=== PATIENT | female | born 1975 | race Caucasian/White ===

== ENCOUNTER 2021-09-27 18:27 | Emergency (ER) | payer OTHER ==
[~2021-09-27] VITALS: Ht 157.5 cm; Wt 90.0 kg
[~2021-09-27 18:27] MED LIST: ACETAZOLAMID125 MG PO; ACETTAB3 OR; AMOX/K CLAV500 MG OR; ASPIRIN81 MG PO; BACTRIM DS1 TAB PO; COUMADIN10 MG OR; COUMADIN5 MG PO; COUMADIN7.5 MG OR; COUMADIN7.5 MG PO; FIORICET PO; FLEXERIL PO; KEFLEX500 MG OR; LIPITOR10 MG OR; LORTAB 7.57.5 MG PO; MAXZIDE OR; MECLIZINE25 MG OR; METAXALONE; NAPROSYN500 MG PO; NEOMYCIN OP; NO; POLYMYXIN OP; TRAMADOL HCL50 MG OR; TRI-SPRINTEC OR; ULTRAM50 M1 PO; ZOFRAN ODT4 MG OR; ZOFRAN4 MG OR; [UNRECOGNIZED DRUG - OTHER] OR
[2021-09-27 19:35] LABS: HEMATOCRIT 40.6 % (37.0-47.0); HEMOGLOBIN 13.3 g/dl (12.0-16.0); IMMATURE GRANULOCYTES 0.1 % (0.0-5.0); MEAN CELL VOLUME 87.1 fL CALC (80.0-100.0); MEAN CORPUSCULAR HGB 28.5 pG CALC (26.0-32.0); MEAN CORPUSCULAR HGB CONC 32.8 g/dL CAL (32.0-36.0); NEUT# 8.92 thou/uL (2.00-7.15); RED BLOOD COUNT 4.66 mill/uL (4.20-5.60); RED CELL DISTRI WIDTH 13.6 % (11.5-15.5)
[2021-09-27 19:57] LABS: INTERNATIONAL NORMALIZED RATIO 2.4 RATIO (0.7-1.3); PROTHROMBIN TIME 23.4 SECONDS (9.0-12.5)
[2021-09-27 20:03] LABS: ALBUMIN 4.6 g/dL (3.2-5.0); ALKALINE PHOSPHATASE 88 u/l (38-126); BUN 17 mg/dL (7-17); BUN/CREATININE RATIO 21 (12-20 (CALC)); CHLORIDE 98 mmol/l (95-108); CREATININE 0.8 mg/dL (0.5-1.0); GFR > 60 ML/MIN (>=60 (CALC)); GFR FOR AFR.AMER. > 60 ML/MIN (>=60 (CALC)); POTASSIUM 3.8 mmol/l (3.5-5.1); SGOT/AST 21 u/l (14-36); SODIUM 137 mmol/l (137-146); TOTAL PROTEIN 8.5 g/dL (6.3-8.2)
[2021-09-27 20:08] LABS: ANION GAP 11 (6-22 (CALC)); BILIRUBIN, TOTAL 0.5 mg/dL (0.0-1.4); CARBON DIOXIDE 32 mmol/l (22-30)
[2021-09-27 20:48] VITALS: BP 116/56
== END 2021-09-27 21:09 | disposition home or self-care (01) | DRG 103 ==
LOC: ED 18:27
PROVIDERS: Family Medicine
DX: G43.909 Migraine, unspecified, not intractable, without status migrainosus (principal); D68.2 Hereditary deficiency of other clotting factors; Z86.73 Personal history of transient ischemic attack (TIA), and cerebral infarction without residual deficits

== ENCOUNTER 2022-04-06 02:01 | Emergency (ER) | payer OTHER ==
[~2022-04-06] VITALS: Ht 157.5 cm; Wt 86.3 kg
[~2022-04-06 02:01] MED LIST changes: +B COMPLEX +C PO; +IRON325 M1 PO; +KEFLEX500 MG PO; +MECLIZINE25 MG PO; +SINGULAIR10 MG PO; +TOPAMAX25 MG PO; +WARFARIN SODIUM4 MG PO; +ZYRTEC10 MG PO
[2022-04-06 02:12] VITALS: BP 120/69
[2022-04-06 02:30] VITALS: BP 113/72
[2022-04-06 03:00] VITALS: BP 106/72
== END 2022-04-06 03:10 | disposition home or self-care (01) | DRG 103 ==
LOC: ED 02:01
DX: R51.9 Headache, unspecified (principal); D68.2 Hereditary deficiency of other clotting factors; Z79.01 Long term (current) use of anticoagulants; Z86.73 Personal history of transient ischemic attack (TIA), and cerebral infarction without residual deficits

== ENCOUNTER 2022-11-25 12:27 | Emergency (ER) | payer OTHER ==
[~2022-11-25] VITALS: Ht 160 cm; Wt 83.6 kg
[~2022-11-25 12:27] MED LIST changes: +ALLEGRA-D 2424 HOUR PO; +AZITHROMYCIN500 MG PO; +FLONASE AL50 MCG/ACT NAB; +MEDDOSEPAK PO; +OMNICEF300 MG PO; +XARELTO20 MG PO; +ZYRTEC10 M3 PO
[2022-11-25 12:56] VITALS: BP 100/65
[2022-11-25 13:01] VITALS: BP 108/61
[2022-11-25 14:34] VITALS: BP 108/61
== END 2022-11-25 14:50 | disposition home or self-care (01) | DRG 103 ==
LOC: ED 12:27
DX: G43.909 Migraine, unspecified, not intractable, without status migrainosus (principal)

== ENCOUNTER 2023-06-24 01:48 | Emergency (ER) | payer OTHER ==
[~2023-06-24] VITALS: Ht 160 cm; Wt 83.4 kg
[2023-06-24 01:53] VITALS: BP 124/77
[2023-06-24 02:00] VITALS: BP 121/77
[2023-06-24] MEDS ORDERED: DOXYCYCLINE HY100 MG PO (02:01)
[2023-06-24 02:35] VITALS: BP 114/74
[2023-06-24 02:42] LABS: BASO% 0.5 % (0-3); EOS% 2.9 % (0-8); HEMATOCRIT 41.8 % (37.0-47.0); HEMOGLOBIN 13.7 g/dl (12.0-16.0); IMMATURE GRANULOCYTES 0.1 % (0.0-5.0); LYMPH% 33.1 % (15-41); MEAN CELL VOLUME 86.7 fL CALC (80.0-100.0); MEAN CORPUSCULAR HGB 28.4 pG CALC (26.0-32.0); MEAN CORPUSCULAR HGB CONC 32.8 g/dL CAL (32.0-36.0); MONO% 5.6 % (2-13); NEUT# 4.71 thou/uL (2.00-7.15); NEUT% 57.8 % (42-76); RED BLOOD COUNT 4.82 mill/uL (4.20-5.60)
[2023-06-24 02:45] VITALS: BP 104/67
[2023-06-24 02:58] LABS: ALBUMIN 4.5 g/dL (3.2-5.0); ALKALINE PHOSPHATASE 69 u/l (38-126); ANION GAP 14 (6-22 (CALC)); BILIRUBIN, TOTAL 0.4 mg/dL (0.02-1.3); BUN 16 mg/dL (7-17); BUN/CREATININE RATIO 19 (12-20 (CALC)); CARBON DIOXIDE 19 mmol/l (22-30); CHLORIDE 112 mmol/l (95-108); CREATININE 0.9 mg/dL (0.5-1.0); GFR FOR AFR.AMER. > 60 ML/MIN (>=60 (CALC)); GFR OTHER RACES > 60 ML/MIN (>=60 (CALC)); POTASSIUM 3.5 mmol/l (3.5-5.1); SGOT/AST 23 u/l (14-36); SODIUM 141 mmol/l (137-146)
[2023-06-24 03:00] VITALS: BP 98/59
[2023-06-24 03:15] VITALS: BP 102/64
== END 2023-06-24 03:25 | disposition home or self-care (01) | DRG 103 ==
LOC: ED 01:48
PROVIDERS: Family Medicine
DX: G43.909 Migraine, unspecified, not intractable, without status migrainosus (principal); Z86.73 Personal history of transient ischemic attack (TIA), and cerebral infarction without residual deficits